=== PATIENT | female | born 1980 | race American Indian/Alaskan Native ===

== ENCOUNTER 2016-12-31 21:12 | Emergency (ER) | payer SELFPAY ==
[2016-12-31 21:35] VITALS: BP 138/83
[2016-12-31 21:51] LABS: Basophils % (Auto) 0.7 % (0.0-1.8); Eosinophils % (Auto) 1.6 % (0.0-4.3); Hemoglobin 13.2 gm/dl (10.1-14.3); Mean Corpuscular HGB Conc 33 % (30-34); Mean Corpuscular Hemoglobin 29 pg (28-32); Mean Corpuscular Volume 89 fl (79-97); Platelet Count 286 K/mm3 (140-440); Red Cell Distribution Width 14.2 % (13.2-15.2); White Blood Count 12.4 K/mm3 (4.5-11.0)
[2016-12-31 22:11] LABS: Anion Gap 18 mmol/L; BUN/Creatinine Ratio 13.33; Blood Urea Nitrogen 8 mg/dL (7-17); Calcium 8.9 mg/dL (8.4-10.2); Carbon Dioxide 30 mmol/L (22-30); Chloride 97.8 mmol/L (98-107); Glucose 90 mg/dL (65-100); Potassium 4.4 mmol/L (3.6-5.0); Sodium 141 mmol/L (137-145)
--- NOTE | 2016-12-31 22:37 | Cat Scan Report ---
FINAL REPORT PROCEDURE: CT HEAD/BRAIN WO CON TECHNIQUE: Computerized tomography of the head was performed without contrast material. HISTORY: syncope episode COMPARISON: April 26, 2012 FINDINGS: Skull and scalp: Normal. Paranasal sinuses: Normal. Ventricles and subarachnoid spaces: Normal. Cerebrum: No evidence of hemorrhage, acute infarction or mass . Cerebellum and brainstem: No evidence of hemorrhage, acute infarction or mass. Vasculature: Normal. Comments: None. IMPRESSION: Normal Examination
== END 2017-01-01 03:40 | disposition left against medical advice (07) ==
LOC: ED 21:12
DX: R07.9 Chest pain, unspecified (principal); Z53.21 Procedure and treatment not carried out due to patient leaving prior to being seen by health care provider
CPT/HCPCS: 36415; 70450; 80048; 84484; 85025; 93005; 93010

== ENCOUNTER 2017-09-09 11:43 | Emergency (ER) | payer SELFPAY ==
[2017-09-09 12:06] VITALS: BP 121/69
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
--- NOTE | 2017-09-09 14:46 | XRay Report ---
RIGHT HAND, 3 views: History: Right hand pain. The bony architecture is intact. Bony alignment is normal. No soft tissue abnormalities are seen. The joint spaces appear preserved. Previous internal fixation of a distal radial fracture is noted. IMPRESSION: Unremarkable right hand.
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
== END 2017-09-09 15:07 | disposition home or self-care (01) ==
LOC: ED 11:43
DX: M79.644 Pain in right finger(s) (principal); M79.641 Pain in right hand; D57.1 Sickle-cell disease without crisis; J45.909 Unspecified asthma, uncomplicated; Z79.899 Other long term (current) drug therapy; Z98.51 Tubal ligation status; Z90.710 Acquired absence of both cervix and uterus; Z88.0 Allergy status to penicillin
CPT/HCPCS: 99283

== ENCOUNTER 2018-04-27 14:54 | Emergency (ER) | payer SELFPAY ==
[2018-04-27] MEDS ORDERED: TORADOL IV ONE (15:40)
[2018-04-27] MEDS ORDERED: ZOFRAN IV ONE (15:40)
[2018-04-27] MEDS ORDERED: NACL 0.9% 1000 ML 1,000 ML IV ONE (15:40)
[2018-04-27] MEDS ORDERED: TORADOL ONE (18:09)
[2018-04-27] MEDS ORDERED: ZOFRAN ONE (18:09)
[2018-04-27 18:29] LABS: Hematocrit 39.5 % (30.3-42.9); Hemoglobin 13.2 gm/dl (10.1-14.3); Mean Corpuscular HGB Conc 33 % (30-34); Mean Corpuscular Volume 88 fl (79-97); Platelet Count 299 K/mm3 (140-440); Red Blood Count 4.49 M/mm3 (3.65-5.03); Red Cell Distribution Width 14.3 % (13.2-15.2)
[2018-04-27 19:18] LABS: BUN/Creatinine Ratio 16; Blood Urea Nitrogen 8 mg/dL (7-17); Calcium 8.4 mg/dL (8.4-10.2); Hemolysis Index 204
[2018-04-27 19:28] LABS: Bilirubin,Direct < 0.2 mg/dL (0-0.2)
[2018-04-27 19:30] LABS: Alanine Aminotransferase 16 units/L (7-56)
[2018-04-27 19:46] LABS: Band Neutrophils # (Manual) 13.3 K/mm3; Basophils % (Manual) 0 % (0.0-1.8); Eosinophils % (Manual) 0 % (0.0-4.3); Monocytes % (Manual) 0 % (0.0-7.3); Total Cells Counted 100
[2018-04-27 19:47] LABS: Anisocytosis 1+
--- NOTE | 2018-04-27 21:26 | Cat Scan Report ---
FINAL REPORT EXAM: CT ABDOMEN PELVIS WO CON HISTORY: Abdominal Pain COMPARISON: Pelvic ultrasound from February 2015. TECHNIQUE: Contiguous axial images were obtained. Additional sagittal and coronal reformatted images were obtained. FINDINGS: Mild linear atelectasis at the lung bases. No calcified gallstones. Liver, spleen, pancreas and adren al glands are grossly unremarkable. No nephrolithiasis or hydronephrosis. Aorta and IVC normal in oriana iber. Urinary bladder is unremarkable. No distal ureteral urinary bladder calculi. Uterus is surgically abs ent. Bilateral ovaries appear to remain. Cystic structure within the left ovary measuring 5.0 x 4.0 c entimeters in axial dimension. No free fluid or lymphadenopathy in the pelvic cavity. Prior tubal lig ation. The appendix is normal in caliber. Several fluid-filled small bowel loops in the abdomen. Some of the bowel loops are borderline dilated measuring up to 2.7 centimeters. Findings are concerning for mild enteritis with reactive ileus. No terrance bowel obstruction. No free air pneumatosis. Moderate focal degenerative changes L5-S1 level. Bony pelvis is grossly intact. IMPRESSION: Findings concerning for mild enteritis with reactive ileus. Developing partial small bowel obstructio n is not excluded. No terrance bowel obstruction. The appendix is normal in caliber. 5.0 x 4.0 centimeter left adnexal cystic structure likely ovarian. This could be further evaluated by pelvic ultrasound if clinically indicated. Followup pelvic ultrasound within 6-8 weeks would be sugdavid giron to ensure stability versus resolution.
--- NOTE | 2018-04-27 21:45 | Emergency Department Report ---
<GAMALIEL MENDEZ - Last Filed: 04/27/18 21:39> ED Abdominal Pain HPI - General Chief Complaint: Abdominal Pain Stated Complaint: ABD PAIN Time Seen by Provider: 04/27/18 15:18 Source: patient Mode of arrival: Ambulatory Limitations: No Limitations - History of Present Illness Initial Comments: 37-year-old -N[place]alese female range of motion department complaining of a couple day history of lower abdominal pain has been waxing and waning in sterile fashion, associated with swelling. She reports no vaginal discharge. No diarrhea, constipation, has had some nausea, chest pain, palpitations. History of having a hysterectomy about which she says for 5 years ago has been having some vaginal bleeding about 4 times a year lasting 2-3 days. States the difference with this vaginal bleeding. Was a little heavier and having a little bit worse cramps MD Complaint: abdominal pain -: Gradual Radiation: none Migration to: no migration, suprapubic Severity scale (0 -10): 6 Quality: cramping, aching Consistency: constant Improves With: nothing Worsens With: nothing Associated Symptoms: denies: diarrhea, fever, constipation, dysuria, hematemesis, hematochezia, melena, hematuria, anorexia - Related Data Home Medications Medication Instructions Recorded Confirmed Last Taken Ketorolac [Toradol] 10 mg PO Q6H PRN 05/16/18 05/20/18 05/12/18 09:00 Previous Rx's Medication Instructions Recorded Last Taken Type ALBUTEROL Inhaler (OR & NICU) 2 puff IH QID PRN #1 inhalation 05/03/14 04/17/18 21:00 Rx [ProAir HFA Inhaler] HYDROcodone/APAP 5-325 [[place] 1 each PO Q6HR PRN #20 tablet 05/20/18 Unknown Rx 5/325] Allergies Allergy/AdvReac Type Severity Reaction Status Date / Time Penicillins Allergy Anaphylaxis Verified 05/16/18 11:34 ED Review of Systems Constitutional: denies: chills, fever Eyes: denies: eye pain, eye discharge, vision change ENT: denies: ear pain, throat pain Respiratory: denies: cough, shortness of breath, wheezing Cardiovascular: denies: chest pain, palpitations Endocrine: no symptoms reported Gastrointestinal: denies: abdominal pain, nausea, diarrhea Genitourinary: denies: urgency, dysuria, discharge Musculoskeletal: denies: back pain, joint swelling, arthralgia Skin: denies: rash, lesions Neurological: denies: headache, weakness, paresthesias Psychiatric: denies: anxiety, depression Hematological/Lymphatic: denies: easy bleeding, easy bruising ED Past Medical Hx - Past Medical History Hx Congestive Heart Failure: No Hx Diabetes: No Hx Sickle Cell Disease: Yes (SCT) Hx Asthma: Yes Hx COPD: No Hx HIV: No Additional medical history: History of chest pain - Surgical History Past Surgical History?: Yes Additional Surgical History: tubal ligations x3, hysterectomy - Social History Smoking Status: Never Smoker Substance Use Type: None - Medications Home Medications: Home Medications Medication Instructions Recorded Confirmed Last Taken Type ALBUTEROL Inhaler (OR & NICU) 2 puff IH QID PRN #1 inhalation 05/03/14 05/20/18 04/17/18 21:00 Rx [ProAir HFA Inhaler] Ketorolac [Toradol] 10 mg PO Q6H PRN 05/16/18 05/20/18 05/12/18 09:00 History HYDROcodone/APAP 5-325 [[place] 1 each PO Q6HR PRN #20 tablet 05/20/18 Unknown Rx 5/325] ED Physical Exam - General Limitations: No Limitations General appearance: alert, in no apparent distress - Head Head exam: Present: atraumatic, normocephalic - Eye Eye exam: Present: normal appearance, PERRL, EOMI Pupils: Present: normal accommodation - ENT ENT exam: Present: mucous membranes moist - Neck Neck exam: Present: normal inspection, tenderness, full ROM - Respiratory Respiratory exam: Present: normal lung sounds bilaterally. Absent: respiratory distress, wheezes, rhonchi, stridor, chest wall tenderness, accessory muscle use - Cardiovascular Cardiovascular Exam: Present: regular rate, normal rhythm. Absent: systolic murmur, diastolic murmur, rubs, gallop - GI/Abdominal GI/Abdominal exam: Present: soft, normal bowel sounds - Extremities Exam Extremities exam: Present: normal inspection - Back Exam Back exam: Present: normal inspection - Neurological Exam Neurological exam: Present: alert, oriented X3 - Psychiatric Psychiatric exam: Present: normal affect, normal mood - Skin Skin exam: Present: warm, dry, intact, normal color. Absent: rash ED Medical Decision Making - Lab Data Result diagrams: 04/27/18 15:41 04/27/18 15:41 ED Disposition Clinical Impression: Chronic pelvic pain in female, Gastroenteritis, Complex cyst of left ovary Menorrhagia Qualifiers: Menorrahagia type: with regular cycle Qualified Code(s): N92.0 - Excessive and frequent menstruation with regular cycle Disposition: - TO HOME OR SELFCARE Condition: Stable Instructions: Ovarian Cyst (ED), Gastroenteritis (ED), Abdominal Pain (ED) Additional Instructions: Please follow up with your [facility] at [facility] in 2-3 days See alternate [facility] if needed. Take medication as prescribed Increase fluid intake Referrals: [facility] [Provider Group] - 24 Hours [facility] [Provider Group] - 3-5 Days PRIMARY CAREMD [Primary Care Provider] - 3-5 Days ROGER INMAN MD [Staff Physician] - 2-3 Days Forms: Work/School Release Form(ED) <TRENT BYERS - Last Filed: 06/13/18 13:46> ED Review of Systems ROS: Stated complaint: ABD PAIN Other details as noted in HPI ED Course Vital Signs 04/27/18 04/27/18 04/28/18 15:01 18:22 00:26 Temperature 98.8 F 99.6 F Pulse Rate 103 H 90 Respiratory 20 18 17 Rate Blood Pressure 145/92 Blood Pressure 121/79 [Right] O2 Sat by Pulse 99 100 Oximetry ED Medical Decision Making - Lab Data Result diagrams: 04/27/18 15:41 04/27/18 15:41 - Radiology Data Radiology results: report reviewed CT scan of the abdomen and pelvis without contrast,Transvaginal and pelvic ultra sound non-OB dictated by radiologist and report reviewed by myself. Please see report below. Findings [facility] [address] [place] [address] Cat Scan Report Signed Patient: BARTOLO GOMEZ MR#: [id number] : 1980 Acct:[id number] Age/Sex: 37 / F ADM Date: 04/27/18 Loc: ED Attending Dr: Ordering Physician: BRENDAN CRUZ Date of Service: 04/27/18 Procedure(s): CT abdomen pelvis wo con Accession Number(s): [id number] cc: BRENDAN CRUZ FINAL REPORT EXAM: CT ABDOMEN PELVIS WO CON HISTORY: Abdominal Pain COMPARISON: Pelvic ultrasound from February 2015. TECHNIQUE: Contiguous axial images were obtained. Additional sagittal and coronal reformatted images were obtained. FINDINGS: Mild linear atelectasis at the lung bases. No calcified gallstones. Liver, spleen, pancreas and adrenal glands are grossly unremarkable. No nephrolithiasis or hydronephrosis. Aorta and IVC normal in caliber. Urinary bladder is unremarkable. No distal ureteral urinary bladder calculi. Uterus is surgically absent. Bilateral ovaries appear to remain. Cystic structure within the left ovary measuring 5.0 x 4.0 centimeters in axial dimension. No free fluid or lymphadenopathy in the pelvic cavity. Prior tubal ligation. The appendix is normal in caliber. Several fluid-filled small bowel loops in the abdomen. Some of the bowel loops are borderline dilated measuring up to 2.7 centimeters. Findings are concerning for mild enteritis with reactive ileus. No terrance bowel obstruction. No free air pneu matosis. Moderate focal degenerative changes L5-S1 level. Bony pelvis is grossly intact. IMPRESSION: Findings concerning for mild enteritis with reactive ileus. Developing partial small bowel obstruction is not excluded. No terrance bowel obstruction. The appendix is normal in caliber. 5.0 x 4.0 centimeter left adnexal cystic structure likely ovarian. This could be further evaluated by pelvic ultrasound if clinically indicated. Followup pelvic ultrasound within 6-8 weeks would be suggested to ensure stability versus resolution. Transcribed By: BROCK Dictated By: CLEMENTE TIRADO MD Electronically Authenticated By: CLEMENTE TIRADO MD Signed Date/Time: 04/27/182125 DD/ 28 TD/TT: 04/27/182128 Findings [facility] [address] [place] [address] Ultrasound Report Signed Patient: BARTOLO GOMEZ MR#: [id number] : 1980 Acct:[id number] Age/Sex: 37 / F ADM Date: 04/27/18 Loc: ED Attending Dr: Ordering Physician: BRENDAN CRUZ Date of Service: 04/27/18 Procedure(s): US pelvic complete Accession Number(s): [id number] cc: BRENDAN CRUZ FINAL REPORT EXAM: US PELVIC COMPLETE HISTORY: adnexa structure seen on CT COMPARISON: CT abdomen and pelvis from the same date. TECHNIQUE: Several real-time grayscale and color Doppler images were obtained. Transabdominal and transvaginal exam. FINDINGS: Uterus is surgically absent. Right ovary measures 4.3 x 3.1 x 2.6 centimeters. Left ovary measures 4.5 x 3.9 x 4.6 centimeters. There is vascular flow to the ovaries. Within the left ovary, there is a 4.0 by 2.7 by 3.8 centimeter complex cystic structure with multiple septations. No internal vascularity. Trace fluid at the margin of the left ovary. IMPRESSION: Complex left ovarian cystic structure which may be hemorrhagic or proteinaceous measuring up to 4.0 centimeters. Followup pelvic ultrasound 6-8 weeks suggested to ensure resolution versus stability. Right ovary is unremarkable. Uterus is surgically absent. Transcribed By: LMA Dictated By: CLEMENTE TIRADO MD Electronically Authenticated By: CLEMENTE TIRADO MD Signed Date/Time: 04/27/182305 DD/ 07 TD/TT: 04/27/182307 Findings [facility] [address] [place] [address] Ultrasound Report Signed Patient: BARTOLO GOMEZ MR#: [id number] : 1980 Acct:[id number] Age/Sex: 37 / F ADM Date: 04/27/18 Loc: ED Attending Dr: Ordering Physician: BRENDAN CRUZ Date of Service: 04/27/18 Procedure(s): US transvaginal Accession Number(s): [id number] cc: BRENDAN CRUZ FINAL REPORT EXAM: US TRANSVAGINAL HISTORY: adnexa structure seen on CT COMPARISON: CT abdomen and pelvis from the same date. TECHNIQUE: Several real-time grayscale and color Doppler images were obtained. Transabdominal and transvaginal exam. FINDINGS: Uterus is surgically absent. Right ovary measures 4.3 x 3.1 x 2.6 centimeters. Left ovary measures 4.5 x 3.9 x 4.6 centimeters. There is vascular flow to the ovaries. Within the left ovary, there is a 4.0 by 2.7 by 3.8 centimeter complex cystic structure with multiple septations. No internal vascularity. Trace fluid at the margin of the left ovary. IMPRESSION: Complex left ovarian cystic structure which may be hemorrhagic or proteinaceous measuring up to 4.0 centimeters. Followup pelvic ultrasound 6-8 weeks suggested to ensure resolution versus stability. Right ovary is unremarkable. Uterus is surgically absent. Transcribed By: LMA Dictated By: CLEMENTE TIRADO MD Electronically Authenticated By: CLEMENTE TIRADO MD Signed Date/Time: 04/27/182326 DD/ 28 TD/TT: 04/27/182328 - Medical Decision Making I was asked to follow-up on this patient for her transvaginal and pelvic ultrasound non-OB. Ultrasound was dictated by radiologist and report reviewed by myself. Patient with good blood flow to both ovaries without any tension of ovarian torsion. Ultrasound results shows Complex left ovarian cystic structure which may be hemorrhagic or proteinaceous measuring up to 4.0 centimeters. Followup pelvic ultrasound 6-8 weeks suggested to ensure resolution versus stability. Right ovary is unremarkable. Uterus is surgically absent. Patient is okay to be discharged. Previous provider completed discharge information and this will be given to patient's and she goes to [facility] so I told her to follow up at [facility] in 2-3 days and that they recommend that she has ultrasound repeated in 6-8 weeks. She voiced understanding and and discharged home in stable condition without any distress. Pain is controlled. Vital signs stable and she is a febrile. Critical care attestation.: If time is entered above; I have spent that time in minutes in the direct care of this critically ill patient, excluding procedure time. ED Disposition Is pt being admited?: No Does the pt Need Aspirin: No
[2018-04-27] MEDS ORDERED: FLAGYL PO STA (22:20)
[2018-04-27] MEDS ORDERED: LEVAQUIN PO ONE (22:20)
--- NOTE | 2018-04-27 23:06 | Ultrasound Report ---
FINAL REPORT EXAM: US PELVIC COMPLETE HISTORY: adnexa structure seen on CT COMPARISON: CT abdomen and pelvis from the same date. TECHNIQUE: Several real-time grayscale and color Doppler images were obtained. Transabdominal and tr ansvaginal exam. FINDINGS: Uterus is surgically absent. Right ovary measures 4.3 x 3.1 x 2.6 centimeters. Left ovary measures 4. 5 x 3.9 x 4.6 centimeters. There is vascular flow to the ovaries. Within the left ovary, there is a 4 .0 by 2.7 by 3.8 centimeter complex cystic structure with multiple septations. No internal vascularit y. Trace fluid at the margin of the left ovary. IMPRESSION: Complex left ovarian cystic structure which may be hemorrhagic or proteinaceous measuring up to 4.0 c entimeters. Followup pelvic ultrasound 6-8 weeks suggested to ensure resolution versus stability. Right ovary is unremarkable. Uterus is surgically absent.
[2018-04-27] MEDS ORDERED: SUBLIMAZE IV ONE (23:15)
--- NOTE | 2018-04-27 23:27 | Ultrasound Report ---
FINAL REPORT EXAM: US TRANSVAGINAL HISTORY: adnexa structure seen on CT COMPARISON: CT abdomen and pelvis from the same date. TECHNIQUE: Several real-time grayscale and color Doppler images were obtained. Transabdominal and tr ansvaginal exam. FINDINGS: Uterus is surgically absent. Right ovary measures 4.3 x 3.1 x 2.6 centimeters. Left ovary measures 4. 5 x 3.9 x 4.6 centimeters. There is vascular flow to the ovaries. Within the left ovary, there is a 4 .0 by 2.7 by 3.8 centimeter complex cystic structure with multiple septations. No internal vascularit y. Trace fluid at the margin of the left ovary. IMPRESSION: Complex left ovarian cystic structure which may be hemorrhagic or proteinaceous measuring up to 4.0 c entimeters. Followup pelvic ultrasound 6-8 weeks suggested to ensure resolution versus stability. Right ovary is unremarkable. Uterus is surgically absent.
[2018-04-27] MEDS ORDERED: SUBLIMAZE ONE (23:46)
[2018-04-28 00:27] VITALS: BP 121/79
== END 2018-04-28 00:29 | disposition home or self-care (01) ==
LOC: ED 14:54
DX: N83.202 Unspecified ovarian cyst, left side (principal); J45.909 Unspecified asthma, uncomplicated; Z98.51 Tubal ligation status; Z88.0 Allergy status to penicillin; Z90.710 Acquired absence of both cervix and uterus
CPT/HCPCS: 36415; 74176; 76830; 76856; 80048; 80076; 83690; 85007; 85025; 96374; 96375; 99284; J1885; J2405; J3010; J7030

== ENCOUNTER 2018-05-20 08:37 | Day surgery (SDC) | payer OTHER, SELFPAY ==
[2018-05-20] MEDS ORDERED: LACTATED RINGERS 1,000 ML IV SCH (09:42)
--- NOTE | 2018-05-20 09:50 | Anesthesia Consultation ---
Anesthesia Consult and Med Hx Date of service: 05/20/18 - Airway Anesthetic Teeth Evaluation: Good ROM Head & Neck: Adequate Mental/Hyoid Distance: Adequate Mallampati Class: Class II Intubation Access Assessment: Probably Good - Pulmonary Exam CTA: Yes - Cardiac Exam Cardiac Exam: RRR - Pre-Operative Health Status ASA Pre-Surgery Classification: ASA2 Proposed Anesthetic Plan: General - Pulmonary Hx Smoking: No Hx Asthma: Yes (last inhaler use 2m ago; hx intubation in 2004 for exacerbation) Hx Respiratory Symptoms: No SOB: No Home Oxygen Therapy: No - Cardiovascular System Hx Hypertension: No Hx Heart Attack/AMI: No Hx Percutaneous Transluminal Coronary Angioplasty (PTCA): No Hx Cardia Arrhythmia: No Hx Valvular Heart Disease: Yes (MVP) - Central Nervous System Hx Seizures: No CVA: No Hx Psychiatric Problems: No - Gastrointestinal Hx Gastroesophageal Reflux Disease: No - Endocrine Hx Renal Disease: No Hx Liver Disease: No Hx Insulin Dependent Diabetes: No Hx Non-Insulin Dependent Diabetes: No Hx Thyroid Disease: No - Other Systems Hx Alcohol Use: Yes (Occas) Hx Obesity: Yes - Additional Comments Anesthesia Medical History Comments: Hx PONV with previous anesthetics.
--- NOTE | 2018-05-20 09:50 | Anesthesia Day of Surgery ---
Anesthesia Day of Surgery - Day of Surgery Patient Examined: Yes Patient H&P Reviewed: Yes Patient is NPO: Yes
[2018-05-20] MEDS ORDERED: NEURONTIN PO NR (10:00)
[2018-05-20] MEDS ORDERED: PROVENTIL IH NR (10:00)
[2018-05-20] MEDS ORDERED: VERSED IV NR (10:00)
[2018-05-20] MEDS ORDERED: TRANSDERM-SCOP TD NR (10:00)
[2018-05-20] MEDS ORDERED: XYLOCAINE MPF 2% ONE (10:55)
[2018-05-20] MEDS ORDERED: ZEMURON IV ONE (10:55)
[2018-05-20] MEDS ORDERED: DIPRIVAN 10 MG/ML IV ONE (10:55)
[2018-05-20] MEDS ORDERED: SUBLIMAZE ONE ×2 (10:55→13:45)
--- NOTE | 2018-05-20 11:41 | Short Stay Summary ---
Short Stay Documentation Date of service: 05/20/18 Narrative H&P: Pt is a 37yo BF LMP 2014 s/p [facility] presents for surgical evaluation and treatment of a persistent complex left ovarian cyst 4.5 x 3.9 x 4.6 cm ovary with a 4.0 x 2.7 x 3.8cm cyst. CA125 - WNL. She complains of recurrent pelvic pain, and has had the same left cyst removed twice before and now desires a Left Oophorectomy. - History Principal diagnosis: Persistent complex left ovarian cyst H&P: obtained from office Past Medical History: other (Asthma) Past Surgical History: hysterectomy, Other (BTL) Social history: no significant social history, - Allergies and Medications Current Medications: Allergies Penicillins Allergy (Verified 05/16/18 11:34) Anaphylaxis Home Medications Medication Instructions Recorded Confirmed Last Taken Type ALBUTEROL Inhaler (OR & NICU) 2 puff IH QID PRN #1 inhalation 05/03/14 05/20/18 04/17/18 21:00 Rx [ProAir HFA Inhaler] Ketorolac [Toradol] 10 mg PO Q6H PRN 05/16/18 05/20/18 05/12/18 09:00 History Active Medications Albuterol (Proventil) 2.5 mg IH PREOP NR Stop: 05/20/18 16:00 Last Admin: 05/20/18 11:35 Dose: 2.5 mg Documented by: Celecoxib (Celebrex) 200 mg PO PREOP NR Stop: 05/20/18 16:00 Gabapentin (Neurontin) 300 mg PO PREOP NR Stop: 05/20/18 16:00 Last Admin: 05/20/18 11:36 Dose: 300 mg Documented by: Lactated Ringer's (Lactated Ringers) 1,000 mls @ 75 mls/hr IV DIRECT GALILEO Stop: 05/20/18 23:59 Midazolam HCl (Versed) 2 mg IV PREOP NR Stop: 05/20/18 23:59 Last Admin: 05/20/18 11:36 Dose: 2 mg Documented by: Scopolamine (Transderm-Scop) 1 each TD PREOP NR Stop: 05/23/18 09:59 Last Admin: 05/20/18 11:36 Dose: 1 each Documented by: - Physical exam General appearance: mild distress Integumentary: no rash HEENT: Atraumatic Lungs: Clear to auscultation Breasts: deferred Heart: Regular rate Gastrointestinal: normal Female Genitourinary: deferred Rectal Exam: deferred Extremities: no ischemia, No edema Neurological: Normal gait, Normal speech - Brief post op/procedure progress note Date of procedure: 05/20/18 Pre-op diagnosis: 1. Pain 2. Complex left ovarian cyst Post-op diagnosis: same Procedure: Laparoscopic left salpingo-oophorectomy Anesthesia: GETA Findings: An absent uterus and cervix. Left fallopian tube and ovary densely adherent to the left pelvic sidewall and the pelvic cul-de-sac. Normal right ovary with Filshie clip on the remnant right fallopian tube. Surgeon: CE RODRIGUEZ Estimated blood loss: minimal Pathology: list (left fallopian tube and ovary; 2 Filshie clips) Specimen disposition: to lab Condition: stable - Hospital course Hospital course: Unremarkable. - Disposition Condition at discharge: Good Disposition: DC- TO HOME OR SELFCARE - Discharge Diagnoses (1) Complex cyst of left ovary Status: Resolved (2) Chronic pelvic pain in female Status: Chronic Short Stay Discharge Plan Activity: no restrictions Diet: regular Follow up with: PO TRAN MD [Primary Care Provider] - 7 Days CE RODRIGUEZ MD [Staff Physician] - 14 Days Prescriptions: HYDROcodone/APAP 5-325 [Spring 5/325] 1 each PO Q6HR PRN #20 tablet PRN Reason: Pain
[2018-05-20] MEDS ORDERED: GENTAMICIN IV SCH (11:45)
[2018-05-20] MEDS ORDERED: CLEOCIN 600 MG/50 mL 600 MG/50 ML BAG IV NR (12:00)
[2018-05-20] MEDS ORDERED: MARCAINE 0.5% INFILTRATI ONE ×3 (12:38→13:05)
[2018-05-20] MEDS ORDERED: NACL 0.9% IR ONE ×2 (13:05→13:54)
[2018-05-20] MEDS ORDERED: ROBINUL ONE (13:08)
[2018-05-20] MEDS ORDERED: BLOXIVERZ ONE (13:08)
[2018-05-20] MEDS ORDERED: ZOFRAN ONE (13:11)
[2018-05-20] MEDS ORDERED: GENTAMICIN/NS 120MG/100ML 120 MG/100 ML BAG IV SCH (14:15)
[2018-05-20] MEDS ORDERED: DILAUDID ONE (14:22)
--- NOTE | 2018-05-20 15:31 | Operative Report ---
Operative Report Operative Report: Date of procedure: 05/20/2018 Pre-operative diagnosis: 1. Chronic pelvic pain 2. Complex left ovarian cyst Post-operative diagnosis: Same Procedure name(s): Laparoscopic left salpingo-oophorectomy Surgeon: Chago Rahman MD Tool Operator: None Anesthesia: Gen. endotracheal intubation by Dr. Blanchard EBL: 20 mL's Findings: An absent uterus and cervix. Left fallopian tube and ovary densely adherent to the left pelvic sidewall and the pelvic cul-de-sac. Normal right ovary with Filshie clip on the remnant right fallopian tube. Procedure: After the patient was correctly identified, she was prepped and draped in usual sterile fashion and placed in dorsal lithotomy position. First the bladder was emptied using a straight catheter, and the sponge stick was placed in the vaginal vault since the cervix was absent. Attention was then turned to the abdomen where first a periumbilical incision was made using a skin knife, an Optiview trocar was inserted under direct visualization. Visualization of the pelvic organs found the uterus to be absent, and the left fallopian tube and ovary were densely adherent to the left pelvic sidewall and pelvic cul-de-sac. The right ovary appeared to be normal with a Filshie clip on the remnant right fallopian tube. Next a suprapubic incision and a left lateral incision was made through which 5 mm trochars were 80 to use in manipulating the pelvic organs. Tripolar cautery was used to clamp cauterized and cut the left infundibulopelvic ligament, and dissecting the left ovary and adherent left fallopian tube from the pelvic sidewall and the pelvic cul-de-sac. After the specimen was removed from the pelvic sidewall was placed in an Endopouch and sent to pathology. The right ovary was noted to be normal, and the Filshie clip which was attached to the remnant right fallopian tube was removed. Copious amounts of irrigation was then performed, and good hemostasis was assured. The Tisseel sealant was sprayed over the left salpingo-oophorectomy site. At this point the procedure was considered complete. All instruments removed from the abdomen, and the abdomen was deflated. The periumbilical incision was closed using 0 Vicryl suture in a [id number] configuration on the fascia followed by 4 Monocryl suture in symmetrical fashion on the skin. The suprapubic and left lateral incisions were closed in similar fashion. Each incision was infiltrated using 0.5% Marcaine solution. The sponge stick was removed, the patient tolerated the procedure well and was transported to recovery in stable condition.
[2018-05-20] MEDS ORDERED: ZOFRAN IV PRN (15:46)
[2018-05-20] MEDS ORDERED: SUBLIMAZE IV PRN (15:46)
[2018-05-20] MEDS: DILAUDID IV PRN ×2 (15:52→16:10)
[2018-05-20] MEDS ORDERED: NORCO 5/325 PO PRN (16:00)
[2018-05-20 16:29] VITALS: BP 134/80
== END 2018-05-20 17:20 | disposition home or self-care (01) ==
LOC: OR 08:37
PROVIDERS: ATTEND Obstetrics & Gynecology
DX: N83.202 Unspecified ovarian cyst, left side (principal); J45.909 Unspecified asthma, uncomplicated; E66.9 Obesity, unspecified; Z68.31 Body mass index [BMI] 31.0-31.9, adult; Z98.51 Tubal ligation status; Z72.89 Other problems related to lifestyle; Z79.899 Other long term (current) drug therapy; Z88.0 Allergy status to penicillin; Z87.440 Personal history of urinary (tract) infections; Z90.710 Acquired absence of both cervix and uterus; Z83.3 Family history of diabetes mellitus; Z82.61 Family history of arthritis; Z82.49 Family history of ischemic heart disease and other diseases of the circulatory system
CPT/HCPCS: 58661; 81025; 88305; A4217; C9250; J1170; J1580; J2250; J2405; J2704; J2710; J3010; J7120